=== PATIENT | male | born 1945 | race Caucasian/White ===

== ENCOUNTER 2018-11-25 12:23 | Day surgery (SDC) | payer MEDICARE, OTHER, SELFPAY ==
[2018-11-25] VITALS (12 sets, daily range): BP systolic 99–159; BP diastolic 69–111; PULSE 60–72; RESP 10–16; TEMP 36–36.6; O2SAT 95–100; BMI 27.6
[2018-11-25] MEDS: LACTATED RINGERS 1,000 ML 200 ML IV (13:20)
[2018-11-25] MEDS: MIDAZOLAM 5 MG/5 ML VIAL IV ×3 (15:52→17:02)
[2018-11-25] MEDS: fentaNYL 250 MCG/5 ML INJ IV ×2 (15:53→17:03)
[2018-11-25] MEDS: diphenhydrAMINE 50 MG/ML VIAL IV (16:58)
--- NOTE | 2018-11-25 17:05 | SUR.OPER ---
Patient requiring increased sedation, continued agitation, request for anesthesia if available. Dr. Pyle available to provide anesthesia support, see anesthesia record.
--- NOTE | 2018-11-25 18:06 | PM.OP.ENDO ---
Operative Date/Time/Diagnoses Date of procedure: 11/25/18 Time of procedure: 18:06 Pre-op diagnosis: First degree relative with colon cancer Post-op diagnosis: same Procedure & Clinicians Study performed: Screening colonoscopy Same procedure as scheduled: Yes Indications: Brother with history of colorectal cancer, patient with a personal history of colon polyps Surgeon: Chuy Farfan Procedure Notes SCOAP/Timeout: yes Procedure in detail: After time-out completed patient was given procedural sedation with midazolam and fentanyl. 160 cm colonoscope was inserted after visual inspection of the perianal region as well as digital rectal exam. Exam identified no polyps the scope was advanced through the folds of the rectum around the rectosigmoid junction and through the loops of the sigmoid colon. Multiple small diverticuli were encountered. There is no evidence of acute diverticulitis. The left colon was identified on the scope on transit this negotiating the splenic flexure. The triangular folds of the transverse colon were identified. of note during the course of this the patient was had significant discomfort. Requiring increasing doses of benzodiazepines and narcotics. At this point in the procedure new go shading the hepatic flexure the colonoscope. Functioning normally. The cleaning jet of water over the tip of the endoscope to clear it of the camera lens did not work adequately. Multiple attempts to troubleshoot this were performed ultimately these were not successful. The colonoscope as a consequence was withdrawn entirely and a new colonoscope was reinserted by following the previously described steps. As this colonoscope was advanced there continued to be significant discomfort and the need for larger amounts of sedation medicine due to these more sizable doses as well as the long duration of the procedure as a consequence of the colonoscope dysfunction as well as a colon that was fairly spasmodic and a difficult to relax of anesthesiology was called. They came to the room and performed an LMA with propofol sedation. The patient became immediately much more comfortable his colonic wall was much more relaxed and advancement of the scope was much easier. This anesthetic with close monitoring by Anesthesiology was essential to the completion of the colonoscopy. At this point we were able to successfully negotiate the hepatic flexure visualize the right colon and enter the cecum. The cecum was confirmed by identifying the soft pillow of the ileocecal valve and a upper [place] foot. I did not identify the appendiceal orifice. At this point a timed scope withdrawal was performed which was approximately 9 minutes. During the course of this no polyps or other pathology besides the scattered sigmoid small diverticuli were noted. the scope was retroflexed within the distal rectum but no lesions were identified. Specimen(s): none sent Complications: none Impression: Sigmoid diverticuli, absence of polyps Recommendations: Colonscopy in 5 years Plan for aftercare: PACU and then home Follow up: as needed Disposition: PACU
--- NOTE | 2018-11-25 18:14 | P.OP.ENDO_ITS ---
Operative Date/Time/Diagnoses Date of procedure: 11/25/18 Time of procedure: 18:06 Pre-op diagnosis: First degree relative with colon cancer Post-op diagnosis: same Procedure & Clinicians Study performed: Screening colonoscopy Same procedure as scheduled: Yes Indications: Brother with history of colorectal cancer, patient with a personal history of colon polyps Surgeon: Chuy Farfan Procedure Notes SCOAP/Timeout: yes Procedure in detail: After time-out completed patient was given procedural sedation with midazolam and fentanyl. 160 cm colonoscope was inserted after visual inspection of the perianal region as well as digital rectal exam. Exam identified no polyps the scope was advanced through the folds of the rectum around the rectosigmoid junction and through the loops of the sigmoid colon. Multiple small diverticuli were encountered. There is no evidence of acute diverticulitis. The left colon was identified on the scope on transit this negotiating the splenic flexure. The triangular folds of the transverse colon were identified. of note during the course of this the patient was had significant discomfort. Requiring increasing doses of benzodiazepines and narcotics. At this point in the procedure new go shading the hepatic flexure the colonoscope. Functioning normally. The cleaning jet of water over the tip of the endoscope to clear it of the camera lens did not work adequately. Mu ltiple attempts to troubleshoot this were performed ultimately these were not successful. The colonoscope as a consequence was withdrawn entirely and a new colonoscope was reinserted by following the previously described steps. As this colonoscope was advanced there continued to be significant discomfort and the need for larger amounts of sedation medicine due to these more sizable doses as well as the long duration of the procedure as a consequence of the colonoscope dysfunction as well as a colon that was fairly spasmodic and a difficult to relax of anesthesiology was called. They came to the room and performed an LMA with propofol sedation. The patient became immediately much more comfortable his colonic wall was much more relaxed and advancement of the scope was much easier. This anesthetic with close monitoring by Anesthesiology was essential to the completion of the colonoscopy. At this point we were able to successfully negotiate the hepatic flexure visualize the right colon and enter the cecum. The cecum was confirmed by identifying the soft pillow of the ileocecal valve and a [place] foot. I did not identify the appendiceal orifice. At this point a timed scope withdrawal was performed which was approximately 9 minutes. During the course of this no polyps or other pathology besides the scattered sigmoid small diverticuli were noted. the scope was retroflexed with in the distal rectum but no lesions were identified. Specimen(s): none sent Complications: none Impression: Sigmoid diverticuli, absence of polyps Recommendations: Colonscopy in 5 years Plan for aftercare: PACU and then home Follow up: as needed Disposition: PACU
--- NOTE | 2018-11-25 18:15 | PM.HP.1 ---
History of Present Illness Chief complaint: NEED CONSENT Narrative: 73-year-old man with first-degree relative, brother, with history of colon cancer in his 3rd screening colonoscopy. Patient under went his 1st approximately 10 years ago which was noted to have a single polyp, this was removed. His subsequent colonoscopy 5 years ago was unremarkable. And he is now due for his routine screening colonoscopy given his personal history of polyps and family history of colon cancer.. Patient denies bowel issues he has no blood per rectum, normal formed stools daily. Patient History Medical History (Updated 11/25/18 @ 18:17 by Chuy Farfan MD) Hypertension (Acute) Kidney stones (Acute) Type 2 diabetes mellitus (Acute) Surgical History (Updated 11/25/18 @ 18:18 by Chuy Farfan MD) S/P colonoscopic polypectomy (Acute Unknown) Family History (Updated 11/25/18 @ 18:19 by Chuy Farfan MD) Brother Colon cancer Social History household members: none Family & Social History Family History (Updated 11/25/18 @ 18:19 by Chuy Farfan MD) Brother Colon cancer Social History: household members none Tobacco & Substance use: Former smoker quit, occasional ETOH Meds Home Medications Medication Instructions Recorded Confirmed Type aspirin, buffered 325 mg PO DAILY 11/25/18 11/25/18 History dorzolamide 1 drp EYE-BOTH BID 11/25/18 11/25/18 History losartan 50 mg PO DAILY 11/25/18 11/25/18 History metformin 1,000 mg PO BID 11/25/18 11/25/18 History omeprazole 20 mg PO DAILY 11/25/18 11/25/18 History simvastatin 20 mg PO QPM 11/25/18 11/25/18 History sitagliptin [Januvia] 100 mg PO DAILY 11/25/18 11/25/18 History timolol 11/25/18 History Allergies Allergy/AdvReac Type Severity Reaction Status Date / Time No Known Drug Allergies Allergy Verified 11/25/18 13:05 Review of Systems Constitutional Constitutional: Denies fever(s) Eyes Eyes: Denies bulging eyes ENT Ears, Nose, Mouth, and Throat: No lip swelling Cardiovascular Cardiovascular: Denies generalize swelling Respiratory Respiratory: Denies stridor Gastrointestinal Gastrointestinal: Denies coffee ground emesis Musculoskeletal Musculoskeletal: Denies loss of height Integumentary/Breasts Skin/Breast: Denies wounds Neurologic Neurologic: Denies abnormal speech and Denies confusion Psychiatric Psychiatric: Denies confusion Endocrine Endocrine: Denies deepening of the voice Hematologic/Lymphatic Hematologic/Lymphatic: Denies lymphadenopathy Allergic/Immunologic Allergic/Immunologic: Denies lip swelling Exam Vital Signs (past 8 hours): - 11/25/18 12:55 11/25/18 17:51 11/25/18 17:55 Temperature 97.8 F 96.8 F L Pulse Rate 70 61 60 Respiratory Rate 16 11 L 10 L Blood Pressure 155/89 H 99/69 118/79 Pulse Oximetry 100 97 96 11/25/18 18:01 11/25/18 18:08 Temperature 97.2 F L Pulse Rate 72 67 Respiratory Rate 14 12 Blood Pressure 117/84 136/95 H Pulse Oximetry 95 100 Oxygen Delivery Method Nasal Cannula Oxygen Flow Rate 4 Narrative Exam Narrative: Well-appearing man in no acute distress Mucous membranes moist No cervical lymphadenopathy, no thyromegaly Lungs clear to auscultation bilaterally Regular rate and rhythm no murmurs gallops or rubs Abdomen soft nontender nondistended absence of umbilical or groin hernias, nontender to palpation Periphery warm well perfused Assessment & Plan Assessment & Plan narrative: 73-year-old man presents for screening colonoscopy in the setting of family history of colon cancer. He is here to proceed plan: Colonoscopy this afternoon Consent obtained Risks and benefits of the procedure including perforation, pain, bleeding, , hypoxia, failure to identify lesion all discussed All questions answered
== END 2018-11-25 19:05 | disposition home or self-care (01) ==
PROVIDERS: PCP Family Medicine; Visit Provider Surgery
PROC: 0DJD8ZZ Inspection of Lower Intestinal Tract, Via Natural or Artificial Opening Endoscopic (ICD-10-PCS; CPT 45378; principal; 2018-11-25 15:00)
DX: Z86.010 Personal history of colon polyps (principal); Z80.0 Family history of malignant neoplasm of digestive organs; I10 Essential (primary) hypertension; E11.9 Type 2 diabetes mellitus without complications; Z79.84 Long term (current) use of oral hypoglycemic drugs
CPT/HCPCS: G0105; J1200; J2250; J2704; J3010

== ENCOUNTER 2019-05-02 13:45 | Emergency (ER) | payer MEDICARE, OTHER, SELFPAY ==
--- NOTE | 2019-05-02 14:20 | DI.CT.S_ITS ---
PROCEDURE: CT ABDOMEN PELVIS W CON INDICATIONS: severe jaundice. no pain, remote hx of hep B TECHNIQUE: After the administration of intravenous contrast, 5 mm thick sections acquired from the diaphragm to the symphysis. 5 mm coronal and sagittal reformats were acquired. For radiation dose reduction, the following was used: automated exposure control, adjustment of mA and/or kV according to patient size. COMPARISON: None. FINDINGS: Image quality: Excellent. ABDOMEN: Lung bases: Lung bases are clear. Heart size is normal. There is coronary arterial vascular calcification. Solid organs: There is a short segment of wall thickening and enhancement of the common hepatic duct measuring approximately 1.5 cm in length and up to approximately 1 cm in combined wall thickness. There is associated moderate intrahepatic biliary ductal dilatation. The common bile duct is nondistended distally. The gallbladder is also nondistended. The liver demonstrates no discrete mass lesion. Pancreas enhances normally without a discrete mass. No pancreatic duct dilatation. Spleen is normal in size and enhancement. No adrenal nodules. Within the left renal pelvis, there is a calcified stone measuring up to 0.9 cm which demonstrates attenuation values of approximately 600-700 Hounsfield units. There is mild associated urothelial thickening. No hydronephrosis in the right or left kidneys. The ureters are normal in caliber. Peritoneum and bowel: Small bowel loops demonstrate normal wall thickness and caliber. The appendix is normal in appearance. There is colonic diverticulosis without acute diverticulitis. Mild segmental wall thickening in the sigmoid colon may reflect a mild colitis. No free fluid or air. Nodes and vessels: No retroperitoneal or mesenteric adenopathy by size criteria. Aorta and inferior vena cava are normal in size. Miscellaneous: No ventral hernias. PELVIS: Genitourinary: Bladder wall thickness is normal. There is heterogeneous enlargement of the prostate. Miscellaneous: No inguinal hernias or adenopathy. Bones: No suspicious bony lesions. No vertebral body compression fractures. IMPRESSION: 1. Short segment of masslike wall thickening and enhancement in the common hepatic duct with associated moderate intrahepatic biliary ductal dilatation. 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 The differential is an inflammatory stricture although this is considered less likely. 2. No definite evidence of metastatic disease in the visualized abdomen. 3. Left nephrolithiasis with mild urothelial thickening in the renal pelvis which may reflect an infectious or inflammatory process. No definite hydronephrosis. 4. Mild segmental wall thickening in the sigmoid colon suggestive of a mild colitis. There is colonic diverticulosis without definite acute diverticulitis. Dictated by: Florencio Yarbrough M.D. on 05/02/2019 at 15:09 Approved by: Florencio Yarbrough M.D. on 05/02/2019 at 15:17
[2019-05-02 14:24] VITALS: BP 163/104; PULSE 73; RESP 16; TEMP 36.6; O2SAT 98; BMI 25.8
--- NOTE | 2019-05-02 14:25 | ED_ITS ---
HPI - Male Genitourinary <SANTA Hillman - Last Filed: 05/03/19 00:56> General Chief complaint: Urogenital-Male Stated complaint: left lower back pain/hematuria x25 days Time Seen by Provider: 05/02/19 14:02 Source: patient Mode of arrival: Ambulatory Limitations: no limitations History of Present Illness HPI Narrative: This is a 73-year-old gentleman, nonsmoker, who presents to ED with left flank and discomfort in right scrotum which started about 25 days ago while he was in [place] in [employer] for fishing for 6 week stay. Patient reports slow urinary stream and frequency last night but had taken increasing quantity of fluid intake prior to this. He states having possible hematuria by seeing dark color urine. Patient also reports jaundice appearance for last 7 days. Patient denies abdominal pain, nausea/vomiting, abdominal pain. Patient reports chills. Denies any recent changes in medication. He denies drinking alcohol or has been taking heavy dose of Tylenol in the past. Patient reports his appetite has been his normal. He had diarrhea last week for 3 days which has been resolved. 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 Related Data Home Medications Medication Instructions Recorded Confirmed aspirin, buffered 325 mg PO DAILY 11/25/18 05/02/19 dorzolamide 1 drp EYE-BOTH BID 11/25/18 05/02/19 losartan 50 mg PO DAILY 11/25/18 05/02/19 metformin 1,000 mg PO BID 11/25/18 05/02/19 omeprazole 20 mg PO DAILY 11/25/18 05/02/19 simvastatin 20 mg PO QPM 11/25/18 05/02/19 sitagliptin [Januvia] 100 mg PO DAILY 11/25/18 05/02/19 timolol 1 drp EYE-BOTH BID 11/25/18 05/02/19 glimepiride 2 mg PO DAILY 05/02/19 05/02/19 Allergies Allergy/AdvReac Type Severity Reaction Status Date / Time No Known Drug Allergies Allergy Verified 05/02/19 14:24 Review of Systems <SANTA Hillman - Last Filed: 05/03/19 00:56> Review of Systems Narrative: General: Reports chills. Denies fever, fatigue, malaise, sweats. HEENT: Denies sinus pain, ear pain, sore throat, difficulty swallowing, dizziness. Respiratory: Denies dyspnea, cough, wheezing, hemoptysis, sputum. Cardiovascular: Denies chest pain, palpitations, orthopnea, edema. Gastrointestinal: Resolved diarrhea for 3 days last week. Denies nausea, vomi ting, abdominal pain, constipation, melena. : See HPI Musculoskeletal: Denies weakness, joint pain or bony pain. Skin: Reports jaundice for about a week. Denies rash, skin lesions, or other. Neurologic: Denies weakness, headache, numbness, change in speech, confusion, seizures, incoordination. Psychiatric: No concerning psychosocial issues. 12-point review of systems is negative except for those stated above. PFS <SANTA Hillman - Last Filed: 05/03/19 00:56> Medical History (Updated 05/03/19 @ 00:38 by SANTA Hillman) History of hepatitis B (Acute) History of kidney stones (Acute) Hyperlipidemia (Acute) Hypertension (Acute) Kidney stones (Acute) Type 2 diabetes mellitus (Acute) Surgical History S/P colonoscopic polypectomy (Acute Unknown) Family History Brother Colon cancer Social History household members: none Smoking Status: Never smoker Family History Brother Colon cancer Social History household members: none Smoking Status: Never smoker Exam <SANTA Hillman - Last Filed: 05/03/19 00:56> Narrative Exam Narrative: GEN: Alert, oriented x 3, well appearing and nourished, and in no acute distress. Head: Normal cephalic, atraumatic. No scalp or temporal tenderness, palpable mass or rash. EYES: Pupils are equal, round, and reactive to light and accommodation. Extraoc ular muscles are intact bilaterally. There is no subconjunctival hemorrhage, exudate and sclera icteric. ENT: Bilateral auditory canals and tympanic membranes clear. Hearing grossly intact. Nose without bleeding, purulent discharge or deviation. Facial sinuses nontender to palpate. Mucous membrane moist, no mucosal lesion. Throat without erythema, tonsillar hypertrophy or exudate. Uvula in midline, airway patent. Neck: Trachea in midline. No JVD, non-tender without lymphadenopathy. No masses or thyroid megaly. Supple, non-tender and no meningeal signs. CARDIAC: Normal regular rate and rhythm without murmurs, gallops, or rubs. No chest wall tenderness. No peripheral edema, cyanosis or pallor. Capillary refill is less than 2 seconds. RESPIRATORY: Lungs are cleat to auscultate bilaterally. No cough, wheezes, rales, or rhonchi. No stridor, respiratory distress, increase work of breathing, or accessary muscle used. ABD: Abdomen soft, nontender and non-distended. No guarding or rebound tenderness to palpate. Bowel sounds are normal in all 4 quadrants. There is no palpable masses or organomegaly. EXT: Full painless ROM of all extremities with no loss of sensation, strength, effusion or edema. SKIN: Patient's face, back, chest jaundice. Warm, dry. No erythema, lesions or rash over visible areas. BACK: Nontender without deformity or crepitance. No flank tenderness. NEUROLOGICAL: Alert and oriented to place, time and person. Sensation and motor function intact bilaterally. No facial droops, dysphasia. Initial Vital Signs Initial Vital Signs: Vital Signs Temperature 97.8 F 05/02/19 14:24 Pulse Rate 73 05/02/19 14:24 Respiratory Rate 16 05/02/19 14:24 Blood Pressure 163/104 H 05/02/19 14:24 Pulse Oximetry 98 05/02/19 14:24 <Melida Zhang DO - Last Filed: 05/03/19 08:44> Initial Vital Signs Initial Vital Signs: Vital Signs Temperature 97.8 F 05/02/19 14:24 Pulse Rate 73 05/02/19 14:24 Respiratory Rate 16 05/02/19 14:24 Blood Pressure 163/104 H 05/02/19 14:24 Pulse Oximetry 98 05/02/19 14:24 Scores <SANTA Hillman - Last Filed: 05/03/19 00:56> GCS [place] coma scale eye opening: Spontaneous [place] coma scale verbal response: Orientated [place] coma scale motor response: Obey commands [place] coma scale total score: 15 Course <SANTA Hillman - Last Filed: 05/03/19 00:56> Orders Ordered: Discontinued Medications Sodium Chloride (Normal Saline 0.9%) 1,000 mls @ 150 mls/hr IV CONT MARY Last Infusion: 05/02/19 17:20 Dose: 0 mls/hr Documented by: Admin: 05/02/19 16:21 Dose: 1,000 mls/hr Documented by: AUSTIN Vital Signs Vital signs: Vital Signs - 8 hr 05/02/19 16:40 05/02/19 17:45 05/02/19 19:30 Pulse Rate 63 65 67 Respiratory Rate 18 18 Blood Pressure Blood Pressure [Left Arm] 141/78 H 157/89 H 129/76 Pulse Oximetry 100 100 98 05/02/19 20:25 Pulse Rate 70 Respiratory Rate 16 Blood Pressure 149/87 H Blood Pressure [Left Arm] Pulse Oximetry 96 <Melida Zhang DO - Last Filed: 05/03/19 08:44> Orders Ordered: Discontinued Medications Sodium Chloride (Normal Saline 0.9%) 1,000 mls @ 150 mls/hr IV CONT MARY Last Infusion: 05/02/19 17:20 Dose: 0 mls/hr Documented by: Admin: 05/02/19 16:21 Dose: 1,000 mls/hr Documented by: AUSTIN Vital Signs Vital signs: Vital Signs - 8 hr 05/02/19 16:40 05/02/19 17:45 05/02/19 19:30 Pulse Rate 63 65 67 Respiratory Rate 18 18 Blood Pressure Blood Pressure [Left Arm] 141/78 H 157/89 H 129/76 Pulse Oximetry 100 100 98 05/02/19 20:25 Pulse Rate 70 Respiratory Rate 16 Blood Pressure 149/87 H Blood Pressure [Left Arm] Pulse Oximetry 96 MDM - Male Genitourinary <SANTA Hillman - Last Filed: 05/03/19 00:56> Differential Diagnosis Differential diagnosis: Likely other (renal stone, hepatitis, liver neoplasm, obstructed gallstone) Medical Records Attestation: I reviewed the patient's medical records. Lab Data Attestation: I reviewed the patient's lab results. Result diagrams: 05/02/19 14:15 05/02/19 14:15 Labs: Lab Results 05/02/19 05/02/19 05/02/19 Range/Units 14:15 14:15 14:15 WBC 9.4 (4.5-11.0) X10^3/uL RBC 4.94 (4.5-5.9) X10^6/uL Hgb 14.8 (13.5-17.5) g/dL Hct 43.2 (41-53) % MCV 87.4 (80-100) fL MCH 30.0 (26-34) PG MCHC 34.4 (30-36) % RDW 15.0 H (11.6-14.8) % Plt Count 360 (150-400) X10^3/uL Neut % (Auto) Not Reportable Lymph % (Auto) Not Reportable [place] % (Auto) Not Reportable Eos % (Auto) Not Reportable Baso % (Auto) Not Reportable Lymph # (Auto) Not Reportable [place] # (Auto) Not Reportable Baso # (Auto) Not Reportable Seg Neutrophils % 80.0 H (38-70) % Band Neutrophils % 6.0 (3-7) % Lymphocytes % (Manual) 6.0 L (25-45) % Monocytes % (Manual) 3.0 (2-11) % Eosinophils % (Manual) 5.0 H (2-4) % RBC Morphology Not Reportable Anisocytosis 1+ H PT 13.7 H (10.1-12.7) SECONDS INR 1.2 (0.9-1.3) APTT 37 H (26.4-36.2) SECONDS Sodium 138 (137-145) mmol/L Potassium 4.6 (3.4-5.1) mmol/L Chloride 103 (98-107) mmol/L Carbon Dioxide 19 L (22-32) mmol/L BUN 28 H (9-20) mg/dL Creatinine 1.30 H (0.66-1.25) mg/dL Estimated GFR 54.3 L (>60) mL/min BUN/Creatinine Ratio 21.5 (6-22) Glucose 180 H (80-110) mg/dL Calcium 9.8 (8.4-10.2) mg/dL Total Bilirubin 15.4 H (0.2-1.3) mg/dL AST 152 H (17-59) IU/L ALT 332 H (21-72) IU/L Alkaline Phosphatase 435 H (38-126) U/L Total Protein 8.1 (6.3-8.2) g/dL Albumin 4.5 (3.5-5.0) g/dL Globulin 3.6 (1.7-4.1) g/dL Albumin/Globulin Ratio 1.3 (1.0-2.8) Lipase 201 (23-300) U/L Urine Color Urine Appearance Urine pH (4.5-8.0) Ur Specific [place] (1.000-1.035) Urine Protein (Negative) Urine Glucose (UA) (Negative) g/dL Urine Ketones (NEGATIVE) Urine Occult Blood (Negative) Urine Nitrate (Negative) Urine Bilirubin (NEGATIVE) Urine Ictotest (Negative) Urine Urobilinogen (0.2) E.U./dL Ur Leukocyte Esterase (NEGATIVE) Urine RBC (0-5/HPF) Urine WBC (0-5/HPF) Ur Transition Epith Cell (0-5/HPF) Urine Bacteria (None) Ur Culture Indicated? 05/02/19 Range/Units 17:23 WBC (4.5-11.0) X10^3/uL RBC (4.5-5.9) X10^6/uL Hgb (13.5-17.5) g/dL Hct (41-53) % MCV (80-100) fL MCH (26-34) PG MCHC (30-36) % RDW (11.6-14.8) % Plt Count (150-400) X10^3/uL Neut % (Auto) Lymph % (Auto) [place] % (Auto) Eos % (Auto) Baso % (Auto) Lymph # (Auto) [place] # (Auto) Baso # (Auto) Seg Neutrophils % (38-70) % Band Neutrophils % (3-7) % Lymphocytes % (Manual) (25-45) % Monocytes % (Manual) (2-11) % Eosinophils % (Manual) (2-4) % RBC Morphology Anisocytosis PT (10.1-12.7) SECONDS INR (0.9-1.3) APTT (26.4-36.2) SECONDS Sodium (137-145) mmol/L Potassium (3.4-5.1) mmol/L Chloride (98-107) mmol/L Carbon Dioxide (22-32) mmol/L BUN (9-20) mg/dL Creatinine (0.66-1.25) mg/dL Estimated GFR (>60) mL/min BUN/Creatinine Ratio (6-22) Glucose (80-110) mg/dL Calcium (8.4-10.2) mg/dL Total Bilirubin (0.2-1.3) mg/dL AST (17-59) IU/L ALT (21-72) IU/L Alkaline Phosphatase (38-126) U/L Total Protein (6.3-8.2) g/dL Albumin (3.5-5.0) g/dL Globulin (1.7-4.1) g/dL Albumin/Globulin Ratio (1.0-2.8) Lipase (23-300) U/L Urine Color [place] Urine Appearance Sl cloudy Urine pH 5.0 (4.5-8.0) Ur Specific [place] 1.015 (1.000-1.035) Urine Protein 1+ H (Negative) Urine Glucose (UA) Trace H (Negative) g/dL Urine Ketones Trace H (NEGATIVE) Urine Occult Blood Trace-lysed (Negative) Urine Nitrate Negative (Negative) Urine Bilirubin 3+ H (NEGATIVE) Urine Ictotest Positive H (Negative) Urine Urobilinogen 1.0 (0.2) E.U./dL Ur Leukocyte Esterase Trace H (NEGATIVE) Urine RBC 1-5/hpf (0-5/HPF) Urine WBC 1-5/hpf (0-5/HPF) Ur Transition Epith Cell 0-1/hpf (0-5/HPF) Urine Bacteria None seen (None) Ur Culture Indicated? Specimen cultured Imaging Data CT scan - abdomen: Radiologist's impression: [address] [address] [address] Scan Report Signed Patient: Xander Sims WMR#: [id number] : 6Acct:[id number] Age/Sex: 73 / MDate of Service: 05/02/19 Loc: ED Accession Number: [id number] Procedure: CT abdomen pelvis w con Ordering Provider: Jermaine Mancilla RN [facility] PROCEDURE: CT ABDOMEN PELVIS W CON INDICATIONS: severe jaundice. no pain, remote hx of hep B TECHNIQUE: After the administration of intravenous contrast, 5 mm thick sections acquired from the diaphragm to the symphysis. 5 mm coronal and sagittal reformats were acquired. For radiation dose reduction, the following was used: automated exposure control, adjustment of mA and/or kV according to patient size. COMPARISON: None. FINDINGS: Image quality: Excellent. ABDOMEN: Lung bases: Lung bases are clear. Heart size is normal. There is coronary arterial vascular calcification. Solid organs: There is a short segment of wall thickening and enhancement of the common hepatic duct measuring approximately 1.5 cm in length and up to approximately 1 cm in combined wall thickness. There is associated moderate intrahepatic biliary ductal dilatation. The common bile duct is nondistended distally. The gallbladder is also nondistended. The liver demonstrates no discrete mass lesion. Pancreas enhances normally without a discrete mass. No pancreatic duct dilatation. Spleen is normal in size and enhancement. No adrenal nodules. Within the left renal pelvis, there is a calcified stone measuring up to 0.9 cm which demonstrates attenuation values of approximately 600-700 Hounsfield units. There is mild associated urothelial thickening. No hydronephrosis in the right or left kidneys. The ureters are normal in caliber. Peritoneum and bowel: Small bowel loops demonstrate normal wall thickness and caliber. The appendix is normal in appearance. There is colonic diverticulosis without acute diverticulitis. Mild segmental wall thickening in the sigmoid colon may reflect a mild colitis. No free fluid or air. Nodes and vessels: No retroperitoneal or mesenteric adenopathy by size criteria. Aorta and inferior vena cava are normal in size. Miscellaneous: No ventral hernias. PELVIS: Genitourinary: Bladder wall thickness is normal. There is heterogeneous enlargement of the prostate. Miscellaneous: No inguinal hernias or adenopathy. Bones: No suspicious bony lesions. No vertebral body compression fractures. IMPRESSION: 1. Short segment of masslike wall thickening and enhancement in the common hepatic duct with associated moderate intrahepatic biliary ductal dilatation. 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 The differential is an inflammatory stricture although this is considered less likely. 2. No definite evidence of metastatic disease in the visualized abdomen. 3. Left nephrolithiasis with mild urothelial thickening in the renal pelvis which may reflect an infectious or inflammatory process. No definite hydronephrosis. 4. Mild segmental wall thickening in the sigmoid colon suggestive of a mild colitis. There is colonic diverticulosis without definite acute diverticulitis. Dictated by: Florencio Yarbrough M.D. on 05/02/2019 at 15:09 Approved by: Florencio Yarbrough M.D. on 05/02/2019 at 15:17 US-limited abd: Radiologist's impression: [place] [address] Ultrasound Report Signed Patient: Xander Sims WMR#: [id number] : 6Acct:[id number] Age/Sex: 73 / MDate of Service: 05/02/19 Loc: ED Accession Number: [id number] Procedure: US abdomen limited Ordering Provider: Jermaine Mancilla PROCEDURE: US ABDOMEN LIMITED INDICATIONS: ELEVATED LFTS, BILIRUBIN; JAUNDICE TECHNIQUE: Real-time scanning was performed of the abdominal and retroperitoneal organs, with image documentation. Color and pulse Doppler interrogation was also performed of the hepatic and splenic vessels, or of the lesion of interest. COMPARISON: [facility], CT, CT ABDOMEN PELVIS W CON, 05/02/2019, 15:32. FINDINGS: Liver: Liver is normal in size and homogeneous in echotexture. Gallbladder: Sludge and stone is seen filling gallbladder lumen. No gross gallbladder wall thickening or pericholecystic fluid. No sonographic Hammonds's sign. Biliary ducts: There is intrahepatic biliary ductal dilatation. Extrahepatic bile duct is 12 mm in caliber. Normal biliary caliber is 6-7 mm or less, or 10 mm or less post-cholecystectomy. Pancreas: Not well-visualized due to overlying bowel gas. IMPRESSION: 1. Cholelithiasis. No evidence of acute cholecystitis. 2. Moderate intrahepatic biliary ductal dilatation and dilatation of common bile that measures up to 1.2 cm in diameter. 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 Dictated by: Vinh Carranza M.D. on 05/02/2019 at 18:19 Approved by: Vinh Carranza M.D. on 05/02/2019 at 18:25 MDM Narrative Medical decision making narrative: This is a 73-year-old gentleman, nonsmoker, who presents to ED thinking he had a kidney stone and hematuria with left flank pain about 25 days ago when he was traveling to [place] for a fishing trip. However when patient came in to ED noticed severe jaundice during triage. Patient denies abdominal pain, nausea vomiting, fever, itching, easily bruising or bleeding. Patient reported a remote history of hepatitis-B. Patient denies heavy alcohol or Tylenol ingestion or changes in medications. Urine test shows positive ictotest and trace leukocytes esterase. Urine is being cultured at this time. There was no leukocytosis but mildly elevated neutrophils. It was very mildly elevated PT and PTT with normal INR. Patient's total bilirubin was significantly elevated up to 15.4 with moderate elevation in liver function tests. Patient has no history of decreased kidney function but had showed creatinine of 1.3 and GFR of 54.3 today. Patient was hydrated with 1 L of normal saline. Pelvis CT was obtained and in indicated the patient likely having 1) cholangiocarcinoma, 2) left nephrolithiasis measuring 0.9 cm without hydronephrosis but mild urothelial thickening in the renal pelvis which reflects possible inflammatory or infectious process. 3) mild colitis without acute diverticulitis. Abdominal ultrasound was obtained in addition which indicated cholelithiasis without acute cholecystitis and moderate intrahepatic biliary duct and common bile dilatation. These findings were shared with the patient. Patient's PCP on-call nurse practitioner Karina, was contacted and she ensured that the clinic will follow up with the patient this coming Saturday. /[facility] was contacted for consultation and Dr. Rivas, GI specialist, kindly provided his expertise that the patient to be urgently followed up outpatient with you to the GI specialist this coming week. Patient provided with strict return precautions and verbalized understanding. Patient provided with contact numbers to follow up with you to up GI specialist. Patient agrees with the treatment plan and no further questions were expressed at this time. <Melida Zhang, DO - Last Filed: 05/03/19 08:44> Lab Data Labs: Lab Results 05/02/19 05/02/19 05/02/19 Range/Units 14:15 14:15 14:15 WBC 9.4 (4.5-11.0) X10^3/uL RBC 4.94 (4.5-5.9) X10^6/uL Hgb 14.8 (13.5-17.5) g/dL Hct 43.2 (41-53) % MCV 87.4 (80-100) fL MCH 30.0 (26-34) PG MCHC 34.4 (30-36) % RDW 15.0 H (11.6-14.8) % Plt Count 360 (150-400) X10^3/uL Neut % (Auto) Not Reportable Lymph % (Auto) Not Reportable [place] % (Auto) Not Reportable Eos % (Auto) Not Reportable Baso % (Auto) Not Reportable Lymph # (Auto) Not Reportable [place] # (Auto) Not Reportable Baso # (Auto) Not Reportable Seg Neutrophils % 80.0 H (38-70) % Band Neutrophils % 6.0 (3-7) % Lymphocytes % (Manual) 6.0 L (25-45) % Monocytes % (Manual) 3.0 (2-11) % Eosinophils % (Manual) 5.0 H (2-4) % RBC Morphology Not Reportable Anisocytosis 1+ H PT 13.7 H (10.1-12.7) SECONDS INR 1.2 (0.9-1.3) APTT 37 H (26.4-36.2) SECONDS Sodium 138 (137-145) mmol/L Potassium 4.6 (3.4-5.1) mmol/L Chloride 103 (98-107) mmol/L Carbon Dioxide 19 L (22-32) mmol/L BUN 28 H (9-20) mg/dL Creatinine 1.30 H (0.66-1.25) mg/dL Estimated GFR 54.3 L (>60) mL/min BUN/Creatinine Ratio 21.5 (6-22) Glucose 180 H (80-110) mg/dL Calcium 9.8 (8.4-10.2) mg/dL Total Bilirubin 15.4 H (0.2-1.3) mg/dL AST 152 H (17-59) IU/L ALT 332 H (21-72) IU/L Alkaline Phosphatase 435 H (38-126) U/L Total Protein 8.1 (6.3-8.2) g/dL Albumin 4.5 (3.5-5.0) g/dL Globulin 3.6 (1.7-4.1) g/dL Albumin/Globulin Ratio 1.3 (1.0-2.8) Lipase 201 (23-300) U/L Urine Color Urine Appearance Urine pH (4.5-8.0) Ur Specific [place] (1.000-1.035) Urine Protein (Negative) Urine Glucose (UA) (Negative) g/dL Urine Ketones (NEGATIVE) Urine Occult Blood (Negative) Urine Nitrate (Negative) Urine Bilirubin (NEGATIVE) Urine Ictotest (Negative) Urine Urobilinogen (0.2) E.U./dL Ur Leukocyte Esterase (NEGATIVE) Urine RBC (0-5/HPF) Urine WBC (0-5/HPF) Ur Transition Epith Cell (0-5/HPF) Urine Bacteria (None) Ur Culture Indicated? 05/02/19 Range/Units 17:23 WBC (4.5-11.0) X10^3/uL RBC (4.5-5.9) X10^6/uL Hgb (13.5-17.5) g/dL Hct (41-53) % MCV (80-100) fL MCH (26-34) PG MCHC (30-36) % RDW (11.6-14.8) % Plt Count (150-400) X10^3/uL Neut % (Auto) Lymph % (Auto) [place] % (Auto) Eos % (Auto) Baso % (Auto) Lymph # (Auto) [place] # (Auto) Baso # (Auto) Seg Neutrophils % (38-70) % Band Neutrophils % (3-7) % Lymphocytes % (Manual) (25-45) % Monocytes % (Manual) (2-11) % Eosinophils % (Manual) (2-4) % RBC Morphology Anisocytosis PT (10.1-12.7) SECONDS INR (0.9-1.3) APTT (26.4-36.2) SECONDS Sodium (137-145) mmol/L Potassium (3.4-5.1) mmol/L Chloride (98-107) mmol/L Carbon Dioxide (22-32) mmol/L BUN (9-20) mg/dL Creatinine (0.66-1.25) mg/dL Estimated GFR (>60) mL/min BUN/Creatinine Ratio (6-22) Glucose (80-110) mg/dL Calcium (8.4-10.2) mg/dL Total Bilirubin (0.2-1.3) mg/dL AST (17-59) IU/L ALT (21-72) IU/L Alkaline Phosphatase (38-126) U/L Total Protein (6.3-8.2) g/dL Albumin (3.5-5.0) g/dL Globulin (1.7-4.1) g/dL Albumin/Globulin Ratio (1.0-2.8) Lipase (23-300) U/L Urine Color [place] Urine Appearance Sl cloudy Urine pH 5.0 (4.5-8.0) Ur Specific [place] 1.015 (1.000-1.035) Urine Protein 1+ H (Negative) Urine Glucose (UA) Trace H (Negative) g/dL Urine Ketones Trace H (NEGATIVE) Urine Occult Blood Trace-lysed (Negative) Urine Nitrate Negative (Negative) Urine Bilirubin 3+ H (NEGATIVE) Urine Ictotest Positive H (Negative) Urine Urobilinogen 1.0 (0.2) E.U./dL Ur Leukocyte Esterase Trace H (NEGATIVE) Urine RBC 1-5/hpf (0-5/HPF) Urine WBC 1-5/hpf (0-5/HPF) Ur Transition Epith Cell 0-1/hpf (0-5/HPF) Urine Bacteria None seen (None) Ur Culture Indicated? Specimen cultured Discharge Plan Departure Patient Disposition: Home Clinical Impression: Cholangiocarcinoma of liver, Kidney stone on left side, High serum bilirubin level, Function kidney decreased Discharge Date/Time: 05/02/19 20:24 Instructions: DI for Kidney Stones, Cholangiocarcinoma Activity Restrictions/Additional Instructions: You have been diagnosed with [possible cholangiocarcinoma, L side kidney stone about 0.9 cm w/o hydronephrosis, mildly decreased kidney function (Cr 1.3 and GFR 54.3), high bilirubin (15.4) with elevated LFT. You may have bladder infection as well and your urine is being cultured at this time an you get a jovita ne call if he needed treatment with antibiotic medication]. What to do: *Take your medications as directed. Please continue with your current medications. *Follow up with your primary care provider office in 2 days, call for an appointment. GI specialist clinic will contact your by Saturday afternoon. If you do not hear from them please contact them by calling [phone]. I spoke with Willian Galdamez and he is aware of your condition. Let them know you were seen in the ED and that we asked you to be seen in follow up. *Return to ED if you have any new, worsening, or concerning symptoms, such as [chest pain, breathing difficulty, unable to tolerate fluids from nausea and vomiting, pain, fever, severe itching, or any acute concerns]. Prescriptions: No Action losartan 50 mg Tablet 50 mg PO DAILY RF: 0 aspirin, buffered 325 mg Tablet 325 mg PO DAILY RF: 0 timolol 0.5 % Drops 1 drp EYE-BOTH BID RF: 0 simvastatin 20 mg Tablet 20 mg PO QPM RF: 0 metformin 1,000 mg Tablet 1,000 mg PO BID RF: 0 omeprazole 20 mg Capsule,Delayed Release(Dr/Ec) 20 mg PO DAILY RF: 0 dorzolamide 2 % Drops 1 drp EYE-BOTH BID RF: 0 Januvia 100 mg Tablet 100 mg PO DAILY RF: 0 glimepiride 2 mg tablet 2 mg PO DAILY RF: 0 Referrals: Willian Rivas [Non-Staff] - Bernard Hopkins MD [Primary Care Provider] -
[2019-05-02 14:46] LABS: INR 1.2 (0.9-1.3); Prothrombin Time 13.7 SECONDS (10.1-12.7)
[2019-05-02 14:47] LABS: Hematocrit 43.2 % (41-53); Hemoglobin 14.8 g/dL (13.5-17.5); Mean Corpuscular HGB Conc 34.4 % (30-36); Mean Corpuscular Volume 87.4 fL (80-100); Platelet Count 360 X10^3/uL (150-400); Red Blood Cell Count 4.94 X10^6/uL (4.5-5.9); White Blood Cell Count 9.4 X10^3/uL (4.5-11.0)
[2019-05-02 14:48] LABS: PTT Partial Thromboplastin Tim 37 SECONDS (26.4-36.2)
[2019-05-02 14:50] LABS: Add Manual Diff / Slide Review YES
[2019-05-02 15:05] LABS: Alanine Aminotransferase 332 IU/L (21-72); Albumin 4.5 g/dL (3.5-5.0); Albumin Globulin Ratio 1.3 (1.0-2.8); Alkaline Phosphatase 435 U/L (38-126); Aspartate Aminotransferase 152 IU/L (17-59); BUN Creatinine Ratio 21.5 (6-22); Bilirubin Total 15.4 mg/dL (0.2-1.3); Blood Urea Nitrogen 28 mg/dL (9-20); Calcium 9.8 mg/dL (8.4-10.2); Carbon Dioxide 19 mmol/L (22-32); Chloride 103 mmol/L (98-107); Estimated Glomerular Filt Rate 54.3 mL/min (>60); Globulin 3.6 g/dL (1.7-4.1); Glucose 180 mg/dL (80-110); HEMOLYSIS 22 (0-50); Lipase 201 U/L (23-300); Potassium 4.6 mmol/L (3.4-5.1); Sodium 138 mmol/L (137-145); Total Protein 8.1 g/dL (6.3-8.2)
[2019-05-02 15:38] LABS: Anisocytosis 1+
[2019-05-02 15:52] VITALS: BP 163/89; PULSE 66; RESP 16; O2SAT 100
--- NOTE | 2019-05-02 16:19 | DI.US.S_ITS ---
PROCEDURE: US ABDOMEN LIMITED INDICATIONS: ELEVATED LFTS, BILIRUBIN; JAUNDICE TECHNIQUE: Real-time scanning was performed of the abdominal and retroperitoneal organs, with image documentation. Color and pulse Doppler interrogation was also performed of the hepatic and splenic vessels, or of the lesion of interest. COMPARISON: [facility], CT, CT ABDOMEN PELVIS W CON, 05/02/2019, 15:32. FINDINGS: Liver: Liver is normal in size and homogeneous in echotexture. Gallbladder: Sludge and stone is seen filling gallbladder lumen. No gross gallbladder wall thickening or pericholecystic fluid. No sonographic Hammonds's sign. Biliary ducts: There is intrahepatic biliary ductal dilatation. Extrahepatic bile duct is 12 mm in caliber. Normal biliary caliber is 6-7 mm or less, or 10 mm or less post-cholecystectomy. Pancreas: Not well-visualized due to overlying bowel gas. IMPRESSION: 1. Cholelithiasis. No evidence of acute cholecystitis. 2. Moderate intrahepatic biliary ductal dilatation and dilatation of common bile that measures up to 1.2 cm in diameter. 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 Dictated by: Vinh Carranza M.D. on 05/02/2019 at 18:19 Approved by: Vinh Carranza M.D. on 05/02/2019 at 18:25
[2019-05-02] MEDS: SODIUM CHLORIDE 0.9% 1,000 ML 1000 ML IV (16:21)
[2019-05-02 16:40] VITALS: BP 141/78; PULSE 63; O2SAT 100
[2019-05-02 17:24] LABS: Bacteria Urine None Seen
[2019-05-02 17:45] VITALS: BP 157/89; PULSE 65; RESP 18; O2SAT 100
[2019-05-02 17:46] LABS: Appearance Urine UA SL CLOUDY; Bilirubin Urine UA 3+ (NEGATIVE); Glucose Urine UA TRACE g/dL (Negative); Ketones Urine UA TRACE (NEGATIVE); Leukocyte Esterase Urine UA TRACE (NEGATIVE); Nitrite Urine UA NEGATIVE (Negative); Occult Blood Urine UA TRACE-LYSED (Negative); Protein Urine UA 1+ (Negative); Specific Gravity Urine UA 1.015 (1.000-1.035)
[2019-05-02 18:01] LABS: Ictotest Urine Positive (Negative)
[2019-05-02 18:02] LABS: Color Urine UA Amber; Culture Indicated Urine Specimen Cultured; RBC Urine 1-5/HPF (0-5/HPF); Transitional Epi Cells Urine 0-1/HPF (0-5/HPF); WBC Urine 1-5/HPF (0-5/HPF)
[2019-05-02 19:30] VITALS: BP 129/76; PULSE 67; RESP 18; O2SAT 98
[2019-05-02 20:25] VITALS: BP 149/87; PULSE 70; RESP 16; O2SAT 96
[2019-05-06 16:24] LABS: Hepatitis A Antibody IgM NONREACTIVE; Hepatitis Acute Panel Interp 0.02; Hepatitis B Core Antibody IgM NONREACTIVE; Hepatitis B Surface Antigen NONREACTIVE; Hepatitis C Antibody NONREACTIVE
== END 2019-05-02 20:24 | disposition home or self-care (01) ==
PROVIDERS: Emergency Provider Nurse Practitioner Family; PCP Family Medicine
DX: C22.1 Intrahepatic bile duct carcinoma (principal); N20.0 Calculus of kidney; E80.7 Disorder of bilirubin metabolism, unspecified; N28.9 Disorder of kidney and ureter, unspecified
CPT/HCPCS: 36415; 74177; 76705; 80053; 80074; 81001; 83690; 85025; 85610; 85730; 87086; 96360; 99283; 99284; Q9967

== ENCOUNTER → 2025-01-13 08:09 | Outpatient (CLI) | payer MEDICARE, OTHER, SELFPAY ==
--- NOTE | 2025-01-13 08:13 | DI.RAD.S_ITS ---
PROCEDURE: XR HIP W PEL IF DONE RT 2V INDICATIONS: hip pain/ leg swelling TECHNIQUE: AP pelvis with lateral view(s) of the right hip(s). COMPARISON: None. FINDINGS: Bones: No fractures or dislocations. [id number] bilateral hip joint osteoarthritic changes are seen. No evidence of avascular necrosis of femoral head. Pelvic ring appears intact. No suspicious bony lesions. Soft tissues: The visualized bowel gas pattern is normal. No suspicious soft tissue calcifications. IMPRESSION: No acute right hip fracture or dislocation. [id number] bilateral hip joint osteoarthritis. No evidence of avascular necrosis. Dictated by: Vinh Carranza M.D. on 01/13/2025 at 8:39 Approved by: Vinh Carranza M.D. on 01/13/2025 at 8:39
--- NOTE | 2025-01-13 08:13 | DI.RAD.S_ITS ---
PROCEDURE: XR KNEE RT 3V INDICATIONS: knee pain/leg swelling TECHNIQUE: 3 views of the knee were acquired. COMPARISON: None. FINDINGS: Bones: No fractures or dislocations. No suspicious bony lesions. Soft tissues: Moderate suprapatellar joint effusion. No suspicious soft tissue calcifications. IMPRESSION: No acute right knee fracture or dislocation. No significant patellar subluxation. Moderate suprapatellar joint effusion. Dictated by: Vinh Carranza M.D. on 01/13/2025 at 8:39 Approved by: Vinh Carranza M.D. on 01/13/2025 at 8:40
== END ==
PROVIDERS: PCP Physician Assistant Medical; Referring Provider Student in an Organized Health Care Education/Training Program; Visit Provider Student in an Organized Health Care Education/Training Program
DX: M16.11 Unilateral primary osteoarthritis, right hip (principal); M79.89 Other specified soft tissue disorders; M25.461 Effusion, right knee; M25.569 Pain in unspecified knee; M25.559 Pain in unspecified hip
CPT/HCPCS: 73502; 73562

== ENCOUNTER 2025-01-27 07:32 | Emergency (ER) | payer MEDICARE, OTHER, SELFPAY ==
--- NOTE | 2025-01-27 08:13 | ED.GENADULT ---
HPI - General Adult General Chief complaint: Extremity Problem,Nontraumatic Stated complaint: Sent from [facility] for Possible DVT Right leg Time Seen by Provider: 01/27/25 08:12 History of Present Illness HPI narrative: 79-year-old male with a past medical history of diabetes, hypertension, glaucoma, presents to the emergency department from walk-in clinic for evaluation of right lower extremity swelling ongoing persistent with the past month, states that he was diagnosed with a cellulitis completed his course of antibiotics, however he states that the swelling persisted therefore 1 in the walk-in clinic, he was sent in due to the fact that there was concern for DVT. He denies any trauma falls. Denies any new pain. Not on any blood thinners no recent travel Related Data Home Medications ?Medication ?Instructions ?Recorded ?Confirmed aspirin,buffered (calcium 325 mg PO DAILY 11/25/18 01/27/25 carbonate-magnesium) 325 mg tablet dorzolamide 2 % eye drops 1 drp EYE-BOTH BID 11/25/18 01/27/25 metformin 1,000 mg tablet 1,000 mg PO BID 11/25/18 01/27/25 omeprazole 20 mg capsule,delayed 20 mg PO DAILY 11/25/18 01/27/25 release simvastatin 20 mg tablet 20 mg PO QPM 11/25/18 01/27/25 sitagliptin phosphate 100 mg 100 mg PO DAILY 11/25/18 01/27/25 tablet (Januvia) glimepiride 2 mg tablet 2 mg PO DAILY 05/02/19 01/27/25 diclofenac sodium 1 % topical gel topical 01/13/25 01/27/25 latanoprost 0.005 % eye drops drp EYE-BOTH 01/13/25 01/27/25 losartan 100 mg tablet 100 mg PO DAILY 01/13/25 01/27/25 tamsulosin 0.4 mg capsule (Flomax) 0.4 mg PO DAILY 01/13/25 01/27/25 timolol maleate 0.5 % eye drops drp EYE-BOTH 01/13/25 01/27/25 Allergies Allergy/AdvReac Type Severity Reaction Status Date / Time amlodipine Allergy Intermediate Swollen Verified 01/27/25 08:14 ankles Review of Systems Review of Systems Narrative: General: Denies fever, chills, weight loss HEENT: Denies headache, eye drainage, eye irritation, head trauma, sore throat, voice change Cardiovascular: Denies any chest pain, palpitations, tachycardia Respiratory: Denies any shortness of breath, cough, wheeze, stridor GI/: Denies any abdominal pain, nausea, vomiting, diarrhea, bright red blood per rectum, melanotic stools, urinary frequency, urinary retention, dysuria, hematuria MSK: Positive right leg swelling Skin: Denies any rashes, lesions, discoloration Neuro: Denies any headache, lightheadedness, dizziness, fainting, weakness Psych: Denies SI/HI Patient History Medical History History of kidney stones History of hepatitis B Hyperlipidemia Type 2 diabetes mellitus Hypertension Kidney stones Surgical History S/P colonoscopic polypectomy (Unknown) Family History Brother Colon cancer Social History household members: none Smoking Status: Never smoker alcohol intake frequency: holidays/special occasions only Exam Narrative Exam Narrative: General: Cooperative, well-developed, not in acute distress HEENT: Normocephalic, atraumatic, PERRLA, normal sclera, eyelids normal Neck: Active full range of motion, atraumatic Chest: Normal to inspection, negative crepitus, no overlying erythema ecchymosis Respiratory: Normal respiratory effort, not in acute respiratory distress, clear to auscultation bilaterally negative cough, wheeze, tachypnea, rhonchi, rales Cardiology: Regular rate rhythm negative gallop, murmur, rubs GI/: No tenderness to palpation, soft, non rigid, normal to inspection, exam deferred MSK: Full active range of motion in all 4 extremities, atraumatic, no tenderness to palpation of any bony prominences, bilateral lower extremities neurovascularly intact patient able to stand bear weight ambulate unassisted here in the emergency department, right leg with +1 pitting edema otherwise neurovascularly intact no other gross deformities Skin: No rashes or lesions noted Neuro: Alert awake oriented x3, moves all 4 extremities spontaneously, cranial nerves intact, able to answer all questions appropriately follows commands appropriately Psych: Cooperative, negative suicidal or homicidal ideations Initial Vital Signs Initial Vital Signs: Vital Signs Temperature 97.7 F 01/27/25 08:14 Pulse Rate 65 01/27/25 08:14 Respiratory Rate 18 01/27/25 08:14 Blood Pressure 211/98 H 01/27/25 08:14 Pulse Oximetry 100 01/27/25 08:14 Oxygen Delivery Method Room Air 01/27/25 08:14 Course Orders Ordered: ED Orders 01/27/25 08:13 US perip venous low extrem rt Stat Vital Signs Vital signs: Vital Signs - 8 hr 01/27/25 08:14 01/27/25 09:26 Temperature 97.7 F Pulse Rate 65 Pulse Rate [Right Dorsalis Pedis] 78 Respiratory Rate 18 Blood Pressure 211/98 H Pulse Oximetry 100 Oxygen Delivery Method Room Air Medical Decision Making Differential Diagnosis Differential Diagnosis: Cellulitis, DVT Imaging Data US - DVT: Radiologist's Impression: [address] [address] Ultrasound Report Signed Patient: Xander Sims MR#: [id number] : 1945 Acct:[id number] Age/Sex: 79 / M Date of Service: 01/27/25 Loc: ED Accession Number: [id number] Procedure: US perip venous low extrem rt Ordering Provider: Aryan Roth D.O. PROCEDURE: US PERIP VENOUS LOW EXTREM RT INDICATIONS: swelling x1 month TECHNIQUE: Real-time imaging, as well as color and pulse Doppler interrogation, were performed of the lower extremity deep veins from the inguinal ligament to the popliteal fossa, with documentation of the visualized calf veins. COMPARISON: None. FINDINGS: The common femoral, femoral, popliteal, and the visualized calf veins are normally compressible, and free of intraluminal thrombus. Color and pulse Doppler demonstrate normal phasic intraluminal flow. There is normal augmentation response to distal compression maneuver. Veins of the calf are not well seen. Mid calf hematoma measuring 11.8 x 4.1 x 9.4 cm. IMPRESSION: No findings of lower extremity deep venous thrombosis. Large mid calf hematoma. MDM Narrative Medical decision making narrative: Patient is a 79 year male past medical history of glaucoma, hypertension, diabetes presenting from walk-in clinic for rule out DVT. According to patient he has had swelling to the right lower extremity for a month, was treated with antibiotics redness went away but swelling persisted denies trauma or falls. Not on any blood thinners. Patient had ultrasound in the ED not consistent with acute DVT, did noted large mid calf hematoma, no signs of compartment syndrome, patient states that when he was initially diagnosed with cellulitis he did use a compression stocking that caused some bruising, I instructed patient to use warm compresses as well as to follow up with his primary care doctor, he verbalized understanding of this and agrees to being discharged home with outpatient follow up Discharge Plan Departure Patient Disposition: Home Clinical Impression: Hematoma of lower leg Activity Restrictions/Additional Instructions: You may use warm compress and compression stockings to help with the swelling Please follow up with your primary care doctor Please read the discharge instructions sheet carefully and bring all papers to all doctor follow-up visits, as it may contain information that your doctor may want to see. Disease processes change and evolve, if your symptoms worsen or if you develop any new symptoms that are concerning to you please return for evaluation. Your evaluation today does not show any evidence of any life-threatening/serious illnesses requiring admission to the hospital or surgery. Please follow-up with your doctor for re-evaluation in approximately 1 day. Seek immediate medical attention for any worrisome symptoms. *If you do not have a primary care provider please contact the [facility] Resource line at [phone]. They will ask some questions about your medical history and help get you set up with a doctor in the community. Prescriptions: No Action latanoprost 0.005 % drops EYE-BOTH tamsulosin [Flomax] 0.4 mg capsule 0.4 mg PO DAILY timolol maleate 0.5 % drops EYE-BOTH losartan 100 mg tablet 100 mg PO DAILY diclofenac sodium 1 % gel topical aspirin,buffd-calcium carb-mag 325 mg Tablet 325 mg PO DAILY simvastatin 20 mg Tablet 20 mg PO QPM metformin 1,000 mg Tablet 1,000 mg PO BID omeprazole 20 mg Capsule,Delayed Release(Dr/Ec) 20 mg PO DAILY dorzolamide 2 % Drops 1 drp EYE-BOTH BID Januvia 100 mg Tablet 100 mg PO DAILY glimepiride 2 mg tablet 2 mg PO DAILY Patient Comments: take 1 tablet by mouth once daily FOR DIABETES Referrals: Sisi Carney PA-C [Primary Care Provider, Medical] Stand Alone Forms: Patient Portal/API
[2025-01-27 08:14] VITALS: BP 211/98; PULSE 65; RESP 18; TEMP 36.5; O2SAT 100; BMI 27.3
[2025-01-27 09:26] VITALS: PULSE 78
[2025-01-27 10:20] VITALS: BP 195/110; PULSE 62; RESP 20; TEMP 36.6; O2SAT 99
== END 2025-01-27 10:21 | disposition home or self-care (01) ==
PROVIDERS: Emergency Provider Student in an Organized Health Care Education/Training Program; PCP Physician Assistant Medical
DX: S80.11XA Contusion of right lower leg, initial encounter (principal); X58.XXXA Exposure to other specified factors, initial encounter
CPT/HCPCS: 93971; 99281; 99283